=== PATIENT | female | born 1980 | race Asian ===

== ENCOUNTER 2019-11-15 22:37 | Emergency (ER) | payer MEDICAID ==
[~2019-11-15] VITALS: Ht 149.9 cm; Wt 54.1 kg
[~2019-11-15 22:37] MED LIST: SUMA25TA35 PO
--- NOTE | 2019-11-15 23:00 | NUR ---
DR. DIETZ AT BEDSIDE ASSESSING PATIENT
[2019-11-15] MEDS ORDERED: LORazepam 1 MG tablet PO ONE (23:05)
[2019-11-15] MEDS ORDERED: LORA-268 PO (23:06)
[2019-11-15 23:22] VITALS: BP 125/91
== END 2019-11-15 23:25 | disposition home or self-care (01) ==
LOC: ER 22:38
DX: F41.9 Anxiety disorder, unspecified (principal); R06.02 Shortness of breath; R20.0 Anesthesia of skin; Z79.899 Other long term (current) drug therapy
CPT/HCPCS: 99283

== ENCOUNTER 2020-05-30 02:58 | Emergency (ER) | payer MEDICAID ==
[~2020-05-30] VITALS: Ht 149.9 cm; Wt 46.0 kg
[~2020-05-30 02:58] MED LIST changes: +LORA-268 PO
[2020-05-30] MEDS ORDERED: LORazepam 1 MG tablet PO ONE (03:15)
[2020-05-30] MEDS ORDERED: ketorolac trometh inj. 60 MG/2 ML VIAL IM ONE (03:15)
[2020-05-30 03:27] VITALS: BP 112/84
== END 2020-05-30 03:29 | disposition home or self-care (01) ==
LOC: ER 02:58
DX: G43.909 Migraine, unspecified, not intractable, without status migrainosus (principal); F41.9 Anxiety disorder, unspecified; Z79.899 Other long term (current) drug therapy
CPT/HCPCS: 96372; 99283; J1885